=== PATIENT | male | born 1980 | race Caucasian/White ===

== ENCOUNTER 2018-05-23 22:34 | Emergency (ER) | payer MEDICAID ==
[~2018-05-23] VITALS: Ht 165.1 cm; Wt 71.0 kg
[~2018-05-23 22:34] MED LIST: BENCRM TP; DIPH-423 PO; KEN0.1O TP
[2018-05-23 22:44] VITALS: BP 140/91
== END 2018-05-23 23:25 | disposition home or self-care (01) ==
LOC: ER 22:35
DX: B35.3 Tinea pedis (principal); Z79.899 Other long term (current) drug therapy
CPT/HCPCS: 99281

== ENCOUNTER 2022-03-01 08:47 | Emergency (ER) | payer MEDICAID ==
[~2022-03-01] VITALS: Ht 165.1 cm; Wt 68.2 kg
[2022-03-01 08:51] VITALS: BP 112/70
== END 2022-03-01 10:40 | disposition home or self-care (01) ==
LOC: ER 08:47
DX: Z02.89 Encounter for other administrative examinations (principal)
CPT/HCPCS: 72170; 99283

== ENCOUNTER 2024-12-04 08:28 | Emergency (ER) | payer MEDICAID, OTHER ==
[~2024-12-04] VITALS: Ht 162.6 cm; Wt 130.0 kg
[2024-12-04 08:43] VITALS: BP 134/86; PULSE 105; TEMP 98.4; O2SAT 98
[2024-12-04 08:53] VITALS: RESP 18
--- NOTE | 2024-12-04 09:09 | Physician Documentation ---
History of Present Illness ~ Chief Complaint: Mechanical Fall Stated Complaint: MED CLEARENCE Time Seen by MD: 09:00 Primary Medical Doctor: NO PMD Mode of Arrival: Police HPI 44-year-old male presenting from the correctional facility with a laceration over the left side of his head. Patient reports that he thinks he may have rolled off of his bed while he was sleeping and hit his head on something. Fall was unwitnessed. Patient currently denies any headache, dizziness or any other associated symptoms aside from the cut on his head. He does not remember when his last tetanus shot was. The patient also states that his right knee hurts as he likely landed on his right knee. Tetanus within 5 Years?: Yes Medication Reconciliation Allergies: Coded Allergies: No Known Allergies (Unverified , 11/23/11) Scheduled Diphenhydramine Hcl* (Benadryl*), 25 MG PO BID Diphenhydramine Hcl/Zinc Acet Cream* (Benadryl 2% Cream*), 1 APPLIC TP BID Triamcinolone Acetonide 0.1% Crm* (Kenalog 0.1% Crm*), 1 APPLIC TP BID Past Medical History Past Medical History: No Pertinent History Past Surgical History: no surgical history Alcohol Use: None Drug Use: none Lives In: Home Review of Systems All Other Systems at this time: Reviewed and Negative Physical Exam Vital Signs: Temperature: 98.4, Source: Oral, Heart Rate: 105, Respiratory Rate: 18, BP: 134/86, Pulse Oximetry: 98, Weight: 130.000 Physical Exam I have reviewed the triage vitals. CONST: Well developed and well nourished. In no acute distress HENT: There is a 3 cm laceration over the left parietal scalp, no foreign bodies visualized inside of laceration EYES: Pupils are equal, round and reactive to light. Normal conjunctiva NECK: Normal range of motion. Supple. CARDIO: Normal rate and regular rhythm. No murmurs, rubs, or gallops. S1, S2. PULM/CHEST: No respiratory distress. Lungs clear to auscultation. No wheeze ABD: Soft and nontender. Nondistended. Bowel sounds normal. No guarding. : Exam deferred MSK: No edema. No deformity. Right knee with a slight effusion. There is te nderness to palpation over the medial side of the knee. There is some pain with flexion and extension of the the knee over this area. Negative Patricia's. Negative Toyin's NEURO: Alert and oriented to person, place and time. Moving all extremities SKIN: Warm and dry. PSYCH: Normal mood and affect. Good eye contact. Procedures Laceration Repair : Length (cm): 3 Anesthesia: Lidocaine Volume Anesthetic (mls): 3 Prep: betadine Foreign Body: not identified Repaired: skin Wound Repaired With: steve Dressing Applied: bacitracin Tolerated Procedure Well?: yes, no complications Progress Results/Orders Results/Orders Orders - TYRELL PATINO MD Ct Head (12/04/24 ) Knee W/Obliques 3 Vw (12/04/24 09:39) Completed Orders - TYRELL PATINO MD Lidocaine 1% 30ml Vial (Xylocaine 1% Via (12/04/24 09:09) Ct Head (12/04/24 ) Tetanus/Pertuss/Diph Acell/Pf (Boostrix (12/04/24 09:15) Knee W/Obliques 3 Vw (12/04/24 09:39) Acetaminophen 325mg Tablet (Tylenol Tabl (12/04/24 09:40) Medications Received in ER Medications (Trade) Dose Ordered Sig/Noy Route PRN Reason Start Time Stop Time Status Last Admin Dose Admin (Xylocaine 1% vial) ONCE STAT IJ 12/04/24 09:09 12/04/24 09:14 DC 12/04/24 09:39 10 ML (Boostrix vaccine syringe) 0.5 ml ONCE ONCE IMVAC 12/04/24 09:15 12/04/24 09:16 DC 12/04/24 10:04 0.5 ML (Tylenol tablet) 975 mg ONCE ONCE PO 12/04/24 09:40 12/04/24 09:41 DC 12/04/24 10:04 975 MG Vital Signs 12/04/24 12/04/24 08:43 08:53 Temp 98.4 Pulse 105 Resp 18 18 B/P (MAP) 134/86 Pulse Ox 98 EKG/XRAY/CT/US/VASC/MRI Chest X-Ray : Additional Comments DI KNEE W/OBLIQUES 3 VW, INDICATION: trauma TECHNICAL DATA: Frontal , oblique and lateral views were obtained of the right knee. COMPARISON: None FINDINGS: An old comminuted patella fracture is seen. Medial, lateral and patellofemoral compartment joint spaces are maintained. Alignment is anatomic. Soft tissues are within normal limits. No joint effusion is demonstrated. IMPRESSION: No acute fracture or dislocation of the right knee. An old comminuted patella fracture : Impression CT CT HEAD INDICATION: trauma EXAM DATE: 12/04/2024 09:43 AM COMPARISON: None RADIATION DOSE: CTDIvol: 56 mGy, DLP: 943 mGy*cm PROCEDURE: CT scans of the head were obtained from the vertex to the skull base. Sagittal and coronal reconstructions were provided. All CT scans at this medical facility are performed using dose modulation techniques as appropriate to a performed exam including the following: Automated exposure control was utilized; adjustment of the MA and/or KV according to patient size; and use of iterative reconstruction technique. FINDINGS: There is sulcal and ventricular prominence. The brain otherwise shows normal morphology and becerra-white matter differentiation, without intracranial hemorrhage, extra-axial fluid collection, mass effect or acute large vessel infarct. The ventricles are normal in size. The basal cisterns are patent. The skull and visible facial bones are intact. The paranasal sinuses, mastoid air cells and middle ear cavities are well-aerated. There is a small left bridal scalp hematoma with skin steve. IMPRESSION: No acute intracranial abnormality. Medical Decision Making Additional Comment 44-year-old male presenting with a scalp laceration. The laceration was repaired-please see procedure note. CT of the head was negative for any intracranial bleeding or other pathology. The right knee was also x-rayed and showed no acute fractures. He likely sustained a right knee contusion. Patient is stable and safe for discharge home now. He was given a Tdap vaccine. Advised the patient that he needs to follow up in 2-3 days either here or with his primary care physician for a wound check and in 10 days for staple removal. Return to the ED sooner with any acutely worsening symptoms. Departure Disposition: 01 HOME / SELF CARE / HOMELESS Impression: Primary Impression: Scalp laceration Additional Impression: Contusion of right knee Condition: Stable Discharge Instructions: Sutures, [place], or Adhesive Wound Closure Additional Instructions: Follow up in two days with her primary care physician or return to the ED for a wound check. Follow up in 10 days for staple removal. Referrals: NO PRIMARY CARE PROVIDER (PCP) Signature Scribe Signature: 1 Attestation: 1 TYRELL PATINO MD December 04, 2024 09:09
[2024-12-04] MEDS: LIDOcaine 1% 30ml preserv. free vial IJ STA (09:39)
--- NOTE | 2024-12-04 10:01 | RADIOLOGY REPORT ---
CT CT HEAD INDICATION: trauma EXAM DATE: 12/04/2024 09:43 AM COMPARISON: None RADIATION DOSE: CTDIvol: 56 mGy, DLP: 943 mGy*cm PROCEDURE: CT scans of the head were obtained from the vertex to the skull base. Sagittal and coronal reconstructions were provided. All CT scans at this medical facility are performed using dose modulation techniques as appropriate t o a performed exam including the following: Automated exposure control was utilized; adjustment of th e MA and/or KV according to patient size; and use of iterative reconstruction technique. FINDINGS: There is sulcal and ventricular prominence. The brain otherwise shows normal morphology a nd becerra-white matter differentiation, without intracranial hemorrhage, extra-axial fluid collection, mass effect or acute large vessel infarct. The ventricles are normal in size. The basal cisterns are patent. The skull and visible facial bones are intact. The paranasal sinuses, mastoid air cells and m iddle ear cavities are well-aerated. There is a small left bridal scalp hematoma with skin steve. IMPRESSION: No acute intracranial abnormality.
[2024-12-04] MEDS: TETanus/Pertussis (Acell)/Diphther VAC/PF (Tdap-Adult) 0.5ml syringe IMVAC ONE (10:04)
[2024-12-04] MEDS: acetaminophen 325mg tablet PO ONE (10:04)
--- NOTE | 2024-12-04 10:13 | RADIOLOGY REPORT ---
DI KNEE W/OBLIQUES 3 VW, INDICATION: trauma TECHNICAL DATA: Frontal , oblique and lateral views were obtained of the right knee. COMPARISON: None FINDINGS: An old comminuted patella fracture is seen. Medial, lateral and patellofemoral compartment joint spac es are maintained. Alignment is anatomic. Soft tissues are within normal limits. No joint effusion i s demonstrated. IMPRESSION: No acute fracture or dislocation of the right knee. An old comminuted patella fracture
== END 2024-12-04 10:58 | disposition home or self-care (01) ==
LOC: EEVIPCON 08:28 → ER 08:28
DX: S01.01XA Laceration without foreign body of scalp, initial encounter (principal); S80.01XA Contusion of right knee, initial encounter; W19.XXXA Unspecified fall, initial encounter; Y93.89 Activity, other specified; Y92.89 Other specified places as the place of occurrence of the external cause; Y99.8 Other external cause status
CPT/HCPCS: 12002; 70450; 73562; 90471; 90715; 99285; J2003; A6449

== ENCOUNTER 2025-05-20 11:32 | Emergency (ER) | payer MEDICAID, OTHER ==
[~2025-05-20] VITALS: Ht 162.6 cm; Wt 66.5 kg
[2025-05-20 11:44] VITALS: TEMP 98.4
[2025-05-20 12:07] LABS: MEAN PLATELET VOLUME 6.8 FL (7.4-10.4); RED CELL DISTRIBUTION WIDTH 13.4 % (11.5-14.5)
[2025-05-20 12:25] VITALS: BP 111/66; PULSE 72; RESP 18; O2SAT 99
[2025-05-20 12:29] LABS: CREATININE 0.91 MG/DL (0.60-1.10); TOTAL CARBON DIOXIDE 29.4 MMOL/L (24-32); eCRCL 88 ML/MIN; eGFR > 90 ML/MIN
[2025-05-20 12:35] LABS: LEUKOCYTE ESTERASE ,URINE NEGATIVE (Neg); NITRITES, URINE NEGATIVE (Neg); OCCULT BLOOD,URINE NEGATIVE (Neg)
[2025-05-20 12:44] LABS: UA COLLECTION TYPE CLN CATCH MIDSTREAM
--- NOTE | 2025-05-20 13:17 | RADIOLOGY REPORT ---
Date: 05/20/2025 12:44 PM Examination: DI ABDOMEN,SINGLE VIEW(KUB) History: abd pain Comparison: None TECHNIQUE: Frontal views of the abdomen was obtained. FINDINGS: Bowel gas pattern is unremarkable. The lung bases are unremarkable. No acute osseous abnormality identified. IMPRESSION: Nonobstructive bowel gas pattern. Large stool burden.
--- NOTE | 2025-05-20 13:59 | Physician Documentation ---
History of Present Illness Chief Complaint: Abdominal Pain Stated Complaint: ABD PAIN Time Seen by MD: 12:39 Primary Medical Doctor: NO PMD Mode of Arrival: POV HPI 44 year old male reports intermittent soft stool/liquid stool, feeling like he is obstructed or blocked. Denies hard stool and actual constipation. Denies fevers, N/V/D. Medication Reconciliation Allergies: Coded Allergies: No Known Allergies (Unverified , 05/20/25) Scheduled Diphenhydramine Hcl* (Benadryl*), 25 MG PO BID Diphenhydramine Hcl/Zinc Acet Cream* (Benadryl 2% Cream*), 1 APPLIC TP BID Triamcinolone Acetonide 0.1% Crm* (Kenalog 0.1% Crm*), 1 APPLIC TP BID Past Medical History Past Medical History: No Pertinent History Past Surgical History: no surgical history Alcohol Use: None Drug Use: none Lives In: Home Review of Systems All Other Systems at this time: Reviewed and Negative Physical Exam Vital Signs: RN Vital Signs have been reviewed: Yes, Temperature: 98.4, Source: Oral, Heart Rate: 72, Respiratory Rate: 18, BP: 111/66, Pulse Oximetry: 99, Weight: 66.500 Oxygen Flow Rate: 0 Physical Exam Gen: no distress HEENT: PERRL, EOMI no neck or facial swelling, uvula midline Pulm: normal WOB, no distress Cardiac: deferred Abd: soft, NT, ND Skin: w/d/i MSK: no deformity Neuro: nonfocal Psych: normal affect Progress Results/Orders Results/Orders Orders - GÓMEZ HUMPHREY MD Abdomen,Single View(Kub) (05/20/25 12:40) Completed Orders - GÓMEZ HUMPHREY MD Urinalysis, Cult If Indicated (05/20/25 11:51) Cbc/Diff (05/20/25 11:51) BMP (05/20/25 11:51) Lipase (05/20/25 11:51) CMP (05/20/25 11:51) Abdomen,Single View(Kub) (05/20/25 12:40) Magnesium Citrate Oral Camelia. (Magnesium C (05/20/25 13:40) Vital Signs 05/20/25 05/20/25 11:44 12:25 Temp 98.4 Pulse 79 72 Resp 16 18 B/P (MAP) 107/68 111/66 (81) Pulse Ox 99 99 O2 Flow Rate 0 0 Laboratory Tests Test 05/20/25 12:00 05/20/25 12:14 White Blood Count 7.6 Red Blood Count 4.56 L Hemoglobin 14.1 Hematocrit 40.6 L Mean Corpuscular Volume 89.1 Mean Corpuscular Hemoglobin 31.0 Mean Corpuscular Hemoglobin Concent 34.8 Red Cell Distribution Width 13.4 Platelet Count 188 Mean Platelet Volume 6.8 L Neutrophils (%) (Auto) 63.0 Lymphocytes (%) (Auto) 25.1 Monocytes (%) (Auto) 7.7 Eosinophils (%) (Auto) 3.5 Basophils (%) (Auto) 0.7 Neutrophils # (Auto) 4.8 Lymphocytes # (Auto) 1.9 Monocytes # (Auto) 0.6 Eosinophils # (Auto) 0.3 Basophils # (Auto) 0.1 CBC Comment Sodium Level 140 Potassium Level 3.9 Chloride Level 103 Carbon Dioxide Level 29.4 Anion Gap 8 Blood Urea Nitrogen 16 Creatinine 0.91 Estimated GFR/1.73 m2 > 90 BUN/Creatinine Ratio 17.6 Glucose Level 92 Calcium Level 9.3 Total Bilirubin 0.5 Aspartate Amino Transf (AST/SGOT) 19 Alanine Aminotransferase (ALT/SGPT) 31 Alkaline Phosphatase 85 Total Protein 7.7 Albumin 4.3 Globulin 3.4 Albumin/Globulin Ratio 1.3 Lipase 49 Chemistry Comments Urine Specimen Description Cln catch midstream Urine Color Straw Urine Clarity Clear Urine pH 6.0 Urine Specific [place] <=1.005 Urine Protein Negative Urine Glucose (UA) Negative Urine Ketones Negative Urine Occult Blood Negative Urine Nitrite Negative Urine Bilirubin Negative Urine Urobilinogen 0.2 Urine Leukocyte Esterase Negative Urine Culture Indicated Not ind Volume Urine Centrifuged 10 ml Urine Comment Medical Decision Making Additional information obtaine: N/A Findings 44 year old male with abdominal discomfort and benign exam. Workup was similarly benign demonstrating normal labs and xray suggesting constipation. Will provide mag citrate for outpatient use and return precautions. Differential Dx:Considerations: Other Additional Comments Ddx = constipation, bowel obstruction, viral gastroenteritis, obstipation, IBD Departure Disposition: HOME / SELF CARE / HOMELESS Impression: Primary Impression: Constipation Condition: Stable Discharge Instructions: Constipation, Adult Referrals: NO PRIMARY CARE PROVIDER (PCP) Education Educated: Patient Educated regarding: diagnosis, treatment, prognosis, need for follow up Signature Scribe Signature: . Attestation: . GÓMEZ HUMPHREY MD May 20, 2025 13:59
[2025-05-20] MEDS: magnesium citrate 296ml oral solution PO ONE (14:08)
== END 2025-05-20 14:10 | disposition home or self-care (01) ==
LOC: ER 11:33
DX: K59.00 Constipation, unspecified (principal); Z79.899 Other long term (current) drug therapy
CPT/HCPCS: 36415; 74018; 80053; 81003; 83690; 85025; 99284